=== PATIENT | male | born 1975 | race Caucasian/White ===

== ENCOUNTER 2017-03-25 18:41 | Emergency (ER) | payer OTHER ==
[~2017-03-25] VITALS: Ht 188 cm; Wt 123.4 kg
[~2017-03-25 18:41] MED LIST: AMOX500C2 PO; DICY20TA10 PO; HYDR-1231 PO; TRAM-42 PO
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
[2017-03-25] MEDS ORDERED: CYCL5TAB PO (20:59)
[2017-03-25 21:02] VITALS: BP 127/71
== END 2017-03-25 21:02 | disposition home or self-care (01) ==
LOC: EDUNIT# 18:41 → ER 18:42
DX: S19.9XXA Unspecified injury of neck, initial encounter (principal); V43.52XA Car driver injured in collision with other type car in traffic accident, initial encounter; Y92.414 Local residential or business street as the place of occurrence of the external cause; Y99.8 Other external cause status
CPT/HCPCS: 70450; 72125; 99282

== ENCOUNTER 2017-10-21 11:57 | Emergency (ER) | payer OTHER ==
[~2017-10-21] VITALS: Ht 188 cm; Wt 122.5 kg
[~2017-10-21 11:57] MED LIST changes: +CYCL5TAB PO
--- OUTSIDE RECORDS SUMMARY | 2017-10-21 12:03 | XMS REPORT ---
Author Author KEILA TENORIO Organization [facility] Address [address] [place] [address] Care Team Providers Care Extractor Filler Name Role Phone KEILA TENORIO Unavailable PROBLEMS Type Condition ICD9-CM Code [id number] Code Onset Dates Condition Status SNOMED Code Assessment Migraine without aura and without status migrainosus, not intractable G43.009 Apr, Active 618499231 Assessment Allergic rhinitis, unspecified allergic rhinitis trigger, unspecified rhinitis seasonality J30.9 Apr, Active 58418954 ALLERGIES Substance Reaction Event Type Date Status Ibuprofen Stomach cramps Drug Allergy Apr, Active SOCIAL HISTORY No smoking Hx information available PLAN OF CARE VITAL SIGNS Height 74 in 2016-04-08 Weight 266.8 lbs 2016-04-08 Heart Rate 92 bpm 2016-04-08 Respiratory Rate 20 2016-04-08 BMI 34.25 kg/m2 2016-04-08 Blood pressure systolic 128 mmHg 2016-04-08 Blood pressure diastolic 86 mmHg 2016-04-08 MEDICATIONS Medication Instructions Dosage Frequency Start Date End Date Duration Status Fioricet 50-325-40 MG Orally every 4 hrs 1 capsule as needed 4h Apr, Active Tylenol 8 Hour 650 MG Orally every 8 hrs 1 tablet as needed 8h Active Cetirizine HCl 10 mg Orally Once a day 1 tablet 24h Apr, Sep, 30 day(s) Active RESULTS No Results PROCEDURES Procedure Date Ordered Related Diagnosis Body Site Office Visit, Est Pt., Level 3 Apr 08, 2016 IMMUNIZATIONS No Known Immunizations
--- OUTSIDE RECORDS SUMMARY | 2017-10-21 12:03 | XMS REPORT ---
Author Author GRANT SIMON Organization [employer] Address Unknown Phone Unavailable Care Team Providers Care Web Production Designer Name Role Phone GRANT SIMON CP Unavailable Allergies, Adverse Reactions, Alerts Substance Reaction Event Type Ibuprofen Stomach cramps Drug Allergy Problems Problem Type Condition Code Onset Dates Condition Status Assessment Caries K02.9 Active Assessment Dental examination Z01.20 Active Medications No Known Medications Procedures Procedure Coding System Code Date INTRAORL-PERIAPICAL 1 FILM 32157 CPT-4 D0220 Aug 14, 2015 BITEWING - SINGLE FILM CPT-4 D0270 Aug 14, 2015 LTD ORAL EVALUATION - PROBLEM FOCUS CPT-4 D0140 Aug 14, 2015 EXTRAC ERUPTED TOOTH/EXPOSED ROOT CPT-4 D7140 Aug 14, 2015 Vital Signs Date/Time: Aug 14, 2015 Blood Pressure Diastolic 88 mmHg Blood Pressure Systolic 135 mmHg Height 74 in Results No Known Results Summary Purpose [employer] Submission
--- OUTSIDE RECORDS SUMMARY | 2017-10-21 12:03 | XMS REPORT ---
Author Author ALVINO RANGEL Organization [facility] Address [address] [place] [address] Care Team Providers Care Pbx Manager Name Role Phone ALVINO RANGEL Unavailable PROBLEMS Type Condition ICD9-CM Code QBL04-HZ Code Onset Dates Condition Status SNOMED Code Problem Irritable bowel syndrome with diarrhea K58.0 Active 242884923 ALLERGIES Substance Reaction Event Type Date Status Ibuprofen Stomach cramps Drug Allergy Sep, Active SOCIAL HISTORY No smoking Hx information available PLAN OF CARE Activity Details Follow Up prn Reason: VITAL SIGNS Height 74 in 2016-09-06 Weight 268.0 lbs 2016-09-06 Temperature 97.9 degrees Fahrenheit 2016-09-06 Heart Rate 76 bpm 2016-09-06 Respiratory Rate 20 2016-09-06 BMI 34.41 kg/m2 2016-09-06 Blood pressure systolic 118 mmHg 2016-09-06 Blood pressure diastolic 72 mmHg 2016-09-06 MEDICATIONS Medication Instructions Dosage Frequency Start Date End Date Duration Status Tylenol 8 Hour 650 MG Orally every 8 hrs 1 tablet as needed 8h Active Dicyclomine HCl 20 mg Orally 4 times a day 1 tablet 6h 12 May, 2016 Active Fioricet 50-325-40 MG Orally every 4 hrs 1 capsule as needed 4h 07 Apr, 2016 Active Fluticasone Propionate 50 MCG/ACT Nasally Once a day 1 spray in each nostril 24h 25 Sep, 2015 10 days Active Flonase Allergy Relief 50 MCG/ACT Nasally twice a day 1 spray in each nostril 12h Aug, 30 day(s) Active RESULTS Name Result Date Reference Range INFLUENZA A & B (IN HOUSE) 2016-09-06 INFLUENZA A negative INFLUENZA B negative Control + Lot # [id number] Exp date 01 29 18 PROCEDURES Procedure Date Ordered Related Diagnosis Body Site INFLUENZA ASSAY W/OPTIC Sep 06, 2016 Office Visit, Est Pt., Level 3 Sep 06, 2016 IMMUNIZATIONS No Known Immunizations
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
--- OUTSIDE RECORDS SUMMARY | 2017-10-21 12:04 | XMS REPORT ---
Author KEILA Velasco Organization [employer] Address Unknown Phone Unavailable Care Team Providers Care Pipe Fitter Helper Name Role Phone KEILA TENORIO CP Unavailable Allergies, Adverse Reactions, Alerts Substance Reaction Event Type Ibuprofen Stomach cramps Drug Allergy Problems Problem Type Condition Code Onset Dates Condition Status Assessment Irritable bowel syndrome with diarrhea K58.0 Active Problem Irritable bowel syndrome with diarrhea K58.0 Active Medications Medication Code System Code Instructions Start Date End Date Status Dosage Fioricet [facility] [address]-11 50-325-40 MG Orally every 4 hrs Apr 08, 2016 1 capsule as needed Dicyclomine HCl [facility] [address]-01 20 mg Orally 4 times a day May 13, 2016 1 tablet Tylenol 8 Hour [facility] [address]-31 650 MG Orally every 8 hrs 1 tablet as needed Cetirizine HCl [facility] [address]-73 10 mg Orally Once a day Apr 08, 2016 Sep 05, 2016 1 tablet Procedures Procedure Coding System Code Date Office Visit, Est Pt., Level 3 CPT-4 00083 May 13, 2016 Vital Signs Date/Time: May 13, 2016 Cardiac Monitoring Heart Rate 88 bpm Weight 269.4 lbs Height 74 in BMI 34.59 Index Blood Pressure Diastolic 76 mmHg Blood Pressure Systolic 110 mmHg Results No Known Results Summary Purpose [employer] Submission
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
--- OUTSIDE RECORDS SUMMARY | 2017-10-21 12:04 | XMS REPORT ---
Author Author VEDA LOMBARDO Organization [employer] Address Unknown Phone Unavailable Care Team Providers Care Planning Manager Name Role Phone VEDA LOMBARDO CP Unavailable Allergies, Adverse Reactions, Alerts Substance Reaction Event Type Ibuprofen Stomach cramps Drug Allergy Problems Problem Type Condition ICD-9 Code Onset Dates Condition Status Assessment Allergic rhinitis 477.9 Active Medications Medication Code System Code Instructions Start Date End Date Status Dosage Singulair [facility] [address]-38 10 MG Orally Once a day Mar 30, 2015 1 tablet in the evening Diclofenac Sodium [facility] [address]-49 50 MG Orally Twice a day Mar 07, 2015 May 06, 2015 1 tablet Zyrtec Allergy [facility] [address]-54 10 MG Orally Once a day in the AM Mar 30, 2015 Jul 28, 2015 1 tablet as needed Procedures Procedure Coding System Code Date Office Visit, Est Pt., Level 3 CPT-4 85256 Mar 30, 2015 Vital Signs Date/Time: Mar 30, 2015 Temperature 98.7 F Weight 248.7 lbs Height 74 in BMI 31.93 Index Blood Pressure Diastolic 74 mmHg Blood Pressure Systolic 132 mmHg Cardiac Monitoring Heart Rate 76 bpm Results No Known Results Summary Purpose [employer] Submission
--- NOTE | 2017-10-21 12:19 | ED EENT ---
History of Present Illness General Chief Complaint: Dental Problems/Pain Stated Complaint: DENTAL ISSUES History of Present Illness Date Seen by Provider: Oct 21, 2017 Time Seen by Provider: 12:13 Initial Comments Patient is a 41-year-old male who presents to the emergency room with left upper dental pain, dental caries, and a broken tooth. Patient reports taking his prescription hydrocodone for pain relief and states that he's tried to get into a dentist but they are all a month out. Location: dental (vital recently he just got dental pain left upper dental pain broken teeth) Allergies and Home Medications Allergies Coded Allergies: ibuprofen (Verified Adverse Reaction, Mild, 01/22/16) Home Medications Amoxicillin 500 Mg Capsule, 2 EACH PO TID Prescribed by: BRINA TORREZ on 03/24/142113 Cyclobenzaprine HCl 5 Mg Tablet, 5 MG PO TID PRN for MUSCLE SPASMS Prescribed by: VALENTINE JULIAN on 03/25/172058 Dicyclomine Hcl 20 Mg Tablet, 20 MG PO PRN, (Reported) Hydrocodone Bit/Acetaminophen 1 Tab Tablet, 1-2 TAB PO Q6H PRN for PAIN Prescribed by: BRINA TORREZ on 03/24/142113 Penicillin V Potassium 500 Mg Tablet, 500 MG PO QID Prescribed by: VALENTINE JULIAN on 10/21/17 1223 Tramadol HCl 50 Mg Tablet, 50 MG PO Q6H PRN for PAIN Prescribed by: MAE BOURGEOIS on 01/22/162040 Patient Home Medication List Home Medication List Reviewed: Yes Review of Systems Constitutional: see HPI, No chills Eyes: No Symptoms Reported Ears: No Symptoms Reported Nose: no symptoms reported Mouth: see HPI Throat: no symptoms reported Respiratory: no symptoms reported Cardiovascular: no symptoms reported Musculoskeletal: no symptoms reported Past Dqbyxni-Iuxfew-Aywutc Hx Patient Social History Type Used: Cigarettes 2nd Hand Smoke Exposure: No Recent Foreign Travel: No Contact w/Someone Who Travel: No Recent Hopitalizations: No Seasonal Allergies Seasonal Allergies: Yes Surgeries History of Surgeries: No Respiratory History of Respiratory Disorde: No Cardiovascular History of Cardiac Disorders: No Neurological History of Neurological Disord: No Reproductive System Hx Reproductive Disorders: No Sexually Transmitted Disease: No HIV/AIDS: No Genitourinary History of Genitourinary Disor: No Gastrointestinal History of Gastrointestinal Di: Yes Gastrointestinal Disorders: Irritable Bowel Musculoskeletal History of Musculoskeletal Dis: No Endocrine History of Endocrine Disorders: No HEENT History of HEENT Disorders: No Cancer History of Cancer: No Psychosocial History of Psychiatric Problem: No Integumentary History of Skin or Integumenta: Yes Skin/Integumentary Disorders: Eczema Blood Transfusions History of Blood Disorders: No Physical Exam Vital Signs Vital Signs - First Documented 10/21/17 10/21/17 12:20 12:50 Temp 98.4 Pulse 78 Resp 18 B/P (MAP) 149/89 (109) Pulse Ox 99 O2 Delivery Room Air General Appearance: WD/WN, no apparent distress Eyes: bilateral eye normal inspection, bilateral eye PERRL, bilateral eye EOMI Ears: bilateral ear auricle normal, bilateral ear canal normal, bilateral ear TM normal Nose: normal inspection Mouth/Throat: pharynx normal, other (carious and fractured teeth) Neck: non-tender Cardiovascular: regular rate, rhythm, no murmur Respiratory: normal breath sounds, no respiratory distress, no accessory muscle use Gastrointestinal: normal bowel sounds, non tender Neurologic/Psychiatric: alert, normal mood/affect, oriented x 3 Skin: normal color, warm/dry Progress/Results/Core Measures Results/Orders My Orders Orders - VALENTINE JULIAN APRN Lidocaine 2% Viscous 15 Ml (Xylocaine Vi (10/21/17 12:30) Medications Given in ED Current Medications Medications Dose Ordered Sig/Mark Route Start Time Stop Time Status Last Admin Dose Admin Lidocaine HCl 5 ml ONCE ONCE PO 10/21/17 12:30 10/21/17 12:31 DC 10/21/17 12:50 5 ML Vital Signs/I&O Vital Sign - Last 12Hours 10/21/17 10/21/17 12:20 12:50 Temp 98.4 98.4 Pulse 78 78 Resp 18 18 B/P (MAP) 149/89 (109) 149/89 (109) Pulse Ox 99 O2 Delivery Room Air Departure Impression Impression: Primary Impression: Dental caries Additional Impression: Broken teeth Disposition: 01 HOME, SELF-CARE Condition: Stable/Unchanged Departure-Patient Inst. Decision time for Depature: 12:18 Referrals: [facility] [place]VALENT[place]N (PCP) Primary Care Physician VEDA LOMBARDO (Family) Primary Care Physician Patient Instructions: Fractured Tooth (DC), Dental Pain (DC), Tooth Decay, Adult (DC) Add. Discharge Instructions: Follow-up with [facility] on [address] here in [place]. Take medication as directed, you may use the gauze pad and your prescription for hydrocodone for pain, and return back to emergency room for any concerns as needed. All discharge instructions reviewed with patient and/or family. Voiced understanding. Scripts Penicillin V Potassium (Penicillin V Potassium) 500 Mg Tablet 500 MG PO QID for 7 Days, #28 TAB Prov: VALENTINE JULIAN APRN 10/21/17 VALENTINE JULIAN APRN Oct 21, 2017 12:19
[2017-10-21] MEDS ORDERED: PENI500T PO (12:23)
[2017-10-21] MEDS ORDERED: LIDOCAINE 2% VISCOUS 15 ML UDC PO ONE (12:30)
[2017-10-21 12:50] VITALS: BP 149/89
== END 2017-10-21 12:51 | disposition home or self-care (01) ==
LOC: EDUNIT# 11:57 → ER 11:59
DX: S02.5XXA Fracture of tooth (traumatic), initial encounter for closed fracture (principal); K02.9 Dental caries, unspecified; Z88.6 Allergy status to analgesic agent; Z87.19 Personal history of other diseases of the digestive system; X58.XXXA Exposure to other specified factors, initial encounter
CPT/HCPCS: 99282

== ENCOUNTER 2022-04-22 04:57 | Emergency (ER) | payer SELFPAY ==
[~2022-04-22 04:57] MED LIST changes: +PENI500T PO
--- NOTE | 2022-04-22 05:08 | ED General ---
General Stated Complaint: RT SIDE FACE DROOPING Source of Information: Patient Exam Limitations: No Limitations History of Present Illness Date Seen by Provider: Apr 22, 2022 Time Seen by Provider: 05:00 Initial Comments 46-year-old male presents emerged from today for right facial droop. States went to bed about 930 last night and felt relatively normal though he does admit that his friends asked him yesterday at work if he was having a stroke due to some facial droop. He is unclear about what time this is exactly. He woke up this morning and his told him he needed to come to the emergency department for facial droop. No recent viral type illness. No tick bites. Never had similar symptoms in the past. No upper or lower extremity weakness numbness or tingling. Allergies and Home Medications Allergies Coded Allergies: ibuprofen (Verified Adverse Reaction, Mild, 01/22/16) Patient Home Medication List Home Medication List Reviewed: Yes Acyclovir (Acyclovir) 800 Mg Tablet, 800 MG PO 5XD Prescribed by: MARTHA OCHOA MD on 04/22/22520 Amoxicillin (Amoxicillin) 500 Mg Capsule, 2 EACH PO TID Prescribed by: BRINA TORREZ on 03/24/142113 Cyclobenzaprine HCl (Cyclobenzaprine HCl) 5 Mg Tablet, 5 MG PO TID PRN for MUSCLE SPASMS Prescribed by: VALENTINE JULIAN on 03/25/172058 Dicyclomine Hcl (Dicyclomine Hcl) 20 Mg Tablet, 20 MG PO PRN, (Reported) Entered as Reported by: IRINA HOPE on 03/24/142044 Hydrocodone Bit/Acetaminophen (Hydrocodone-Apap 5-325 Tablet) 1 Tab Tablet, 1-2 TAB PO Q6H PRN for PAIN Prescribed by: BRINA TORREZ on 03/24/142113 Penicillin V Potassium (Penicillin V Potassium) 500 Mg Tablet, 500 MG PO QID Prescribed by: VALENTINE JULIAN on 10/21/17 1223 Prednisone (Prednisone) 50 Mg Tab, 50 MG PO DAILY Prescribed by: MARTHA OCHOA MD on 04/22/22520 Tramadol HCl (Ultram) 50 Mg Tablet, 50 MG PO Q6H PRN for PAIN Prescribed by: MAE BOURGEOIS on 01/22/162040 Review of Systems Review of Systems Constitutional: no symptoms reported EENTM: no symptoms reported Respiratory: no symptoms reported Cardiovascular: no symptoms reported Gastrointestinal: no symptoms reported Genitourinary: no symptoms reported Musculoskeletal: no symptoms reported Skin: no symptoms reported Psychiatric/Neurological: Other (Right facial droop) Hematologic/Lymphatic: No Symptoms Reported Past Bbqtyyp-Hnyncn-Keslji Hx Patient Social History Tobacco Use?: No Use of E-Cig and/or Vaping dev: No Substance use?: No Alcohol Use?: No Seasonal Allergies Seasonal Allergies: Yes Past Medical History Surgeries: No Respiratory: No Cardiac: No Neurological: No Reproductive Disorders: No Sexually Transmitted Disease: No HIV/AIDS: No Genitourinary: No Gastrointestinal: Yes Irritable Bowel Musculoskeletal: No Endocrine: No HEENT: No Cancer: No Psychosocial: No Integumentary: Yes Eczema Blood Disorders: No Family Medical History Reviewed Nursing Family Hx No Pertinent Family Hx Physical Exam Vital Signs Vital Signs - First Documented 04/22/22 05:07 Temp 36.9 Pulse 86 Resp 16 B/P (MAP) 172/110 (130) Pulse Ox 97 O2 Delivery Room Air Capillary Refill : Height, Weight, BMI Height: 6'2.00" Weight: 270lbs. oz. 122.670724et; 29.53 BMI Method:Stated General Appearance: No Apparent Distress, WD/WN HEENT: PERRL/EOMI, TMs Normal, Normal ENT Inspection, Pharynx Normal Neck: Full Range of Motion, Normal Inspection, Non Tender, Supple Respiratory: Chest Non Tender, Lungs Clear, Normal Breath Sounds, No Accessory Muscle Use, No Respiratory Distress Cardiovascular: Regular Rate, Rhythm, No Edema, No Gallop, No JVD, No Murmur, Normal Peripheral Pulses Gastrointestinal: Normal Bowel Sounds, No Organomegaly, No Pulsatile Mass, Non Tender Neurologic/Psychiatric: Alert, Oriented x3, Normal Mood/Affect, Other (Right facial droop involving the right forehead as well. Normal strength sensation bilateral upper and lower extremities.) Skin: Normal Color, Warm/Dry Lymphatic: No Adenopathy Progress/Results/Core Measures Suspected Sepsis SIRS Temperature: Pulse: Respiratory Rate: Blood Pressure / Mean: Results/Orders Vital Signs/I&O 04/22/22 05:07 Temp 36.9 Pulse 86 Resp 16 B/P (MAP) 172/110 (130) Pulse Ox 97 O2 Delivery Room Air Capillary Refill : Departure Communication (Admissions) Patient is hemodynamically stable. Technically has an NIH of 2 due to facial droop and some dysarthria associated with this but this is clearly Hendrix's palsy. Clear Maricel-Sabina on exam. Discharged in stable condition with antivirals, steroids and recommendation for artificial tears. Impression Primary Impression: Hendrix's palsy Disposition: 01 HOME, SELF-CARE Condition: Stable Departure-Patient Inst. Referrals: [facility]/VALENT[facility]N (PCP) Primary Care Physician VEDA LOMBARDO (Family) Primary Care Physician Patient Instructions: Hendrix's Palsy Add. Discharge Instructions: Take the medications as prescribed until they are gone. Get some artificial tears and using her right arm to help with dryness. You may want to get a patch to protect this eye. Your symptoms will likely improve over the course of the next month but as discussed could become permanent. I recommend you follow-up with your primary doctor should your symptoms persist for further evaluation and treatment recommendations. Return to the emergency department for any severe concerns, specifically if you develop any weakness in arms, legs or your symptoms change in any way concerning to you. Scripts Prednisone (Prednisone) 50 Mg Tab 50 MG PO DAILY for 5 Days, #5 TAB Prov: MARTHA OCHOA DO 04/22/22 Acyclovir (Acyclovir) 800 Mg Tablet 800 MG PO 5XD for 7 Days, #35 TAB Prov: MARTHA OCHOA DO 04/22/22 MARTHA OCHOA DO Apr 22, 2022 05:08
[2022-04-22] MEDS ORDERED: ACYC-112 PO (05:21)
[2022-04-22] MEDS ORDERED: PRD50T PO (05:21)
[2022-04-22 05:30] VITALS: BP 151/100
== END 2022-04-22 05:32 | disposition home or self-care (01) ==
LOC: EDUNIT# 04:57 → ER 05:03
DX: G51.0 Bell's palsy (principal); Z28.310 Unvaccinated for COVID-19
CPT/HCPCS: 99281

== ENCOUNTER 2022-05-25 01:52 | Emergency (ER) | payer SELFPAY ==
[~2022-05-25] VITALS: Ht 182 cm; Wt 125.0 kg
[~2022-05-25 01:52] MED LIST changes: +ACYC-112 PO; +PRD50T PO
[2022-05-25 02:13] LABS: BASOPHILS % (AUTO) 0 % (0-10); EOSINOPHILS # (AUTO) 0.1 10^3/uL (0.0-0.3); EOSINOPHILS % (AUTO) 2 % (0-10); HEMATOCRIT 49 % (40-54); HEMOGLOBIN 17.2 g/dL (13.3-17.7); LYMPHOCYTES # (AUTO) 2.2 10^3/uL (1.0-4.0); LYMPHOCYTES % (AUTO) 29 % (12-44); MEAN CORPUSCULAR HEMOGLOBIN 33 pg (25-34); MEAN CORPUSCULAR HGB CONC 35 g/dL (32-36); MEAN CORPUSCULAR VOLUME 95 fL (80-99); MEAN PLATELET VOLUME 10.5 fL (9.0-12.2); MONOCYTES # (AUTO) 0.4 10^3/uL (0.0-1.0); MONOCYTES % (AUTO) 5 % (0-12); NEUTROPHILS # (AUTO) 4.9 10^3/uL (1.8-7.8); NEUTROPHILS % (AUTO) 64 % (42-75); PLATELET COUNT 162 10^3/uL (130-400); WHITE BLOOD COUNT 7.7 10^3/uL (4.3-11.0)
[2022-05-25] MEDS ORDERED: ASPIRIN 81 MG CHEW (CHILDREN'S ASA) PO ONE (02:15)
--- NOTE | 2022-05-25 02:23 | ED Cardiac General ---
History of Present Illness General Chief Complaint: Chest Pain Stated Complaint: PALPITATIONS,LIGHT HEADED,COLD SWEATS Source: patient History of Present Illness Date Seen by Provider: May 25, 2022 Time Seen by Provider: 02:01 Initial Comments PT ARRIVES VIA POV FROM HOME PT STATES SINCE "3:10 ON WEDNESDAY" 05/23/22, HE HAS BEEN HAVING "HEART FLUTTERS", AND "COLD SWEATS" AND FEELING LIGHTHEADED. SYMPTOMS COME AND GO, NOTHING WORSENS OR IMPROVES THEM C/O SLIGHT PAIN TO LEFT CHEST--"HEART BURN" --COMES AND GOES, NOT PRESENT NOW. NO SHORTNESS OF BREATH NO SWELLING IN LEGS/ FEET OR PAIN IN CALVES NO NAUSEA/VOMITING/DIARRHEA OR ABDOMINAL PAIN NO COUGH OR URI SYMPTOMS NO FEVER OR RECENT ILLNESS SYMPTOMS NO DIFFERENT HEATHER HAS NOT SOUGHT CARE UNTIL TONIGHT STATES HIS MADE HIM COME HERE TONIGHT STATES TONIGHT JUST PRIOR TO ARRIVAL, HE "CHECKED HIS PULSE" FOR THE FIRST TIME TONIGHT--STATES "IT WOULD BEAT 4 TIMES AND THEN PAUSE" DID NOT CHECK WHAT HIS PULSE RATE WAS. HAD THE SAME SYMPTOMS A COUPLE OF YEARS AGO, BUT DID NOT SEEK CARE. PT DENIES ANY MEDICAL PROBLEMS AND DOES NOT TAKE ANY MEDICATIONS PT SMOKES 3/4 PPD,DENIES ETOH OR DRUG USE PT IS NOT COVID VACCINATED. ASA po HOME CONNECT LPN: Yes PCP: CAMILA. SEEN 6 WEEKS AGO FOR HEADACHE Allergies and Home Medications Allergies Coded Allergies: ibuprofen (Verified Adverse Reaction, Mild, 01/22/16) Patient Home Medication List Home Medication List Reviewed: Yes Acyclovir (Acyclovir) 800 Mg Tablet, 800 MG PO 5XD Prescribed by: MARTHA OCHOA MD on 04/22/22520 Amoxicillin (Amoxicillin) 500 Mg Capsule, 2 EACH PO TID Prescribed by: BRINA TORREZ on 03/24/142113 Cyclobenzaprine HCl (Cyclobenzaprine HCl) 5 Mg Tablet, 5 MG PO TID PRN for MUSCLE SPASMS Prescribed by: VALENTINE JULIAN on 03/25/172058 Dicyclomine Hcl (Dicyclomine Hcl) 20 Mg Tablet, 20 MG PO PRN, (Reported) Entered as Reported by: IRINA HOPE on 03/24/142044 Hydrocodone Bit/Acetaminophen (Hydrocodone-Apap 5-325 Tablet) 1 Tab Tablet, 1-2 TAB PO Q6H PRN for PAIN Prescribed by: BRINA TORREZ on 03/24/142113 Penicillin V Potassium (Penicillin V Potassium) 500 Mg Tablet, 500 MG PO QID Prescribed by: VALENTINE JULIAN on 10/21/17 1223 Prednisone (Prednisone) 50 Mg Tab, 50 MG PO DAILY Prescribed by: MARTHA OCHOA MD on 04/22/22 0521 Tramadol HCl (Ultram) 50 Mg Tablet, 50 MG PO Q6H PRN for PAIN Prescribed by: MAE BOURGEOIS on 01/22/162040 Review of Systems Review of Systems Constitutional: see HPI, diaphoresis, dizziness; No fever, No malaise, No weakness EENTM: No Symptoms Reported Respiratory: No Symptoms Reported; Denies Cough, Denies Orthopnea, Denies Shortness of Air Cardiovascular: See HPI, Chest Pain; Denies Edema; Irregular Heart Rate, Lightheadedness, Palpitations; Denies Syncope Gastrointestinal: No Symptoms Reported; Denies Abdominal Pain, Denies Nausea, Denies Vomiting Genitourinary: No Symptoms Reported Musculoskeletal: no symptoms reported Skin: no symptoms reported Psychiatric/Neurological: No Symptoms Reported Endocrine: No Symptoms Reported Hematologic/Lymphatic: No Symptoms Reported Past Sufqcsx-Wwcsph-Chrvoh Hx Patient Social History Tobacco Use?: Yes (10/03 PPD) Tobacco type used: Cigarettes Smoking Status: Current Everyday Smoker Substance use?: No Alcohol Use?: No Seasonal Allergies Seasonal Allergies: Yes Past Medical History Surgery/Hospitalization HX: Hendrix's Palsy Surgeries: No Respiratory: No Cardiac: No Neurological: Yes (HENDRIX'S PALSY) Reproductive Disorders: No Sexually Transmitted Disease: No HIV/AIDS: No Genitourinary: No Gastrointestinal: Yes Irritable Bowel Musculoskeletal: No Endocrine: No HEENT: No Cancer: No Psychosocial: No Integumentary: Yes Eczema Blood Disorders: No Family Medical History No Pertinent Family Hx Physical Exam Vital Signs Capillary Refill : Less Than 3 Seconds Height, Weight, BMI Height: 6'2.00" Weight: 270lbs. oz. 122.339641fy; 29.53 BMI Method:Stated General Appearance: No Apparent Distress, WD/WN, Obese Neck: Full Range of Motion, Normal Inspection, Non Tender, Supple; No Carotid Bruit, No JVD Respiratory: Chest Non Tender, Normal Breath Sounds, No Accessory Muscle Use, No Respiratory Distress Cardiovascular: Regular Rate, Rhythm, No Edema, No JVD, No Murmur, Normal Peripheral Pulses Gastrointestinal: Non Tender, Soft Extremity: Normal Capillary Refill, Normal Inspection, Normal Range of Motion, Non Tender, No Calf Tenderness, No Pedal Edema Neurologic/Psychiatric: Alert, Oriented x3, No Motor/Sensory Deficits, concrete floater II- XII Norm as Tested Skin: Normal Color, Warm/Dry Progress/Results/Core Measures Results/Orders Lab Results Laboratory Tests Test 05/25/22 02:03 05/25/22 02:13 Range/Units White Blood Count 7.7 4.3-11.0 10^3/uL Red Blood Count 5.17 4.30-5.52 10^6/uL Hemoglobin 17.2 13.3-17.7 g/dL Hematocrit 49 40-54 % Mean Corpuscular Volume 95 80-99 fL Mean Corpuscular Hemoglobin 33 25-34 pg Mean Corpuscular Hemoglobin Concent 35 32-36 g/dL Red Cell Distribution Width 12.6 10.0-14.5 % Platelet Count 162 130-400 10^3/uL Mean Platelet Volume 10.5 9.0-12.2 fL Immature Granulocyte % (Auto) 0 % Neutrophils (%) (Auto) 64 42-75 % Lymphocytes (%) (Auto) 29 12-44 % Monocytes (%) (Auto) 5 0-12 % Eosinophils (%) (Auto) 2 0-10 % Basophils (%) (Auto) 0 0-10 % Neutrophils # (Auto) 4.9 1.8-7.8 10^3/uL Lymphocytes # (Auto) 2.2 1.0-4.0 10^3/uL Monocytes # (Auto) 0.4 0.0-1.0 10^3/uL Eosinophils # (Auto) 0.1 0.0-0.3 10^3/uL Basophils # (Auto) 0.0 0.0-0.1 10^3/uL Immature Granulocyte # (Auto) 0.0 0.0-0.1 10^3/uL Prothrombin Time 13.2 12.2-14.7 SEC INR Comment 1.0 0.8-1.4 Activated Partial Thromboplast Time 32 24-35 SEC D-Dimer <= 0.27 0.00-0.49 UG/ML Sodium Level 144 135-145 MMOL/L Potassium Level 3.7 3.6-5.0 MMOL/L Chloride Level 108 H 98-107 MMOL/L Carbon Dioxide Level 25 21-32 MMOL/L Anion Gap 11 5-14 MMOL/L Blood Urea Nitrogen 14 7-18 MG/DL Creatinine 1.13 0.60-1.30 MG/DL Estimat Glomerular Filtration Rate 81 BUN/Creatinine Ratio 12 Glucose Level 105 70-105 MG/DL Calcium Level 8.7 8.5-10.1 MG/DL Corrected Calcium 8.5 8.5-10.1 MG/DL Magnesium Level 2.1 1.6-2.4 MG/DL Total Bilirubin 0.5 0.1-1.0 MG/DL Aspartate Amino Transf (AST/SGOT) 18 5-34 U/L Alanine Aminotransferase (ALT/SGPT) 21 0-55 U/L Alkaline Phosphatase 63 40-136 U/L Total Creatine Kinase 115 30-200 U/L Creatine Kinase MB 2.9 <6.6 NG/ML Myoglobin 57.1 10.0-92.0 NG/ML Troponin I < 0.028 <0.028 NG/ML B-Type Natriuretic Peptide < 10.0 <100.0 PG/ML Total Protein 6.8 6.4-8.2 GM/DL Albumin 4.2 3.2-4.5 GM/DL TSH Lindsay Testing 3.66 0.35-4.94 UIU/ML Influenza Type A (RT-PCR) Not Detected Not Detecte Influenza Type B (RT-PCR) Not Detected Not Detecte SARS-CoV-2 RNA (RT-PCR) Not Detected Not Detecte My Orders Orders - ROBERTA HARRISON DO Ed Iv/Invasive Line Start (05/25/22 02:00) Ekg Tracing (05/25/22 02:00) Monitor-Rhythm Ecg Trace Only (05/25/22 02:00) Bnp Jason (05/25/22 02:00) Cbc With Automated Diff (05/25/22 02:00) Comprehensive Metabolic Panel (05/25/22 02:00) Creatine Kinase (05/25/22 02:00) Creatine Kinase Mb (05/25/22 02:00) Fibrin Degradation Products (05/25/22 02:00) Magnesium (05/25/22 02:00) Protime With Inr (05/25/22 02:00) Partial Thromboplastin Time (05/25/22 02:00) Thyroid Analyzer (05/25/22 02:00) Myoglobin Serum (05/25/22 02:00) Troponin I Jason (05/25/22 02:00) Chest 1 View, Ap/Pa Only (05/25/22 02:00) Aspirin Chewable Tablet (Baby Aspirin Ch (05/25/22 02:15) Covid 19 Inhouse Test (05/25/22 02:16) Influenza A And B By Pcr (05/25/22 02:16) Isolation Central Supply Req (05/25/22 02:16) Medications Given in ED Current Medications Medications Dose Ordered Sig/Mark Route Start Time Stop Time Status Last Admin Dose Admin Aspirin 324 mg ONCE ONCE PO 05/25/22 02:15 05/25/22 02:16 DC 05/25/22 02:19 324 MG Progress Progress Note : Progress Note GIVEN ASPIRIN PT HAD NO CHEST PAIN OF ANY KIND DURING ER STAY NO ARRHYTHMIAS AT ANY TIME NO OTHER SYMPTOMS OF ANY KIND DURING ER STAY BP DOWN TO 130'S/90'S WITHOUT TREATMENT. Initial ECG Impression Date: May 25, 2022 Initial ECG Impression Time: 02:07 Initial ECG Rate: 87 Initial ECG Rhythm: Normal Sinus Diagnostic Imaging Comments CXR--NO ACUTE PROCESS, PENDING RADIOLOGIST REVIEW Reviewed: Reviewed by Me Departure Impression Primary Impression: REPORTED PALPITATIONS Additional Impressions: Chest pain Labile hypertension Disposition: 01 HOME, SELF-CARE Condition: Stable Departure-Patient Inst. Decision time for Depature: 02:56 Referrals: [facility] (PCP/Family) Primary Care Physician Patient Instructions: Chest Pain (DC), Palpitations (DC), High Blood Pressure (DC), DASH Diet Add. Discharge Instructions: HOME, REST NO CAFFEINE NO ENERGY DRINKS NO OVER THE COUNTER DECONGESTANTS OR STIMULANTS TAKE 81 MG ASPIRIN DAILY FOLLOW UP WITH [facility] THIS WEEK FOR FURTHER CARE--CALL IN THE MORNING TO [facility] APPOINTMENT All discharge instructions reviewed with patient and/or family. Voiced understanding. ROBERTA HARRISON DO May 25, 2022 02:23
[2022-05-25 02:24] LABS: ALBUMIN 4.2 GM/DL (3.2-4.5)
[2022-05-25 02:25] LABS: CHLORIDE 108 MMOL/L (98-107); POTASSIUM 3.7 MMOL/L (3.6-5.0); SODIUM 144 MMOL/L (135-145)
[2022-05-25 02:26] LABS: CALCIUM 8.7 MG/DL (8.5-10.1)
[2022-05-25 02:27] LABS: GLUCOSE 105 MG/DL (70-105); TOTAL PROTEIN 6.8 GM/DL (6.4-8.2)
[2022-05-25 02:28] LABS: CARBON DIOXIDE 25 MMOL/L (21-32)
[2022-05-25 02:29] LABS: BILIRUBIN,TOTAL 0.5 MG/DL (0.1-1.0)
[2022-05-25 02:30] LABS: ALKALINE PHOSPHATASE 63 U/L (40-136)
[2022-05-25 02:31] LABS: CREATININE SERUM 1.13 MG/DL (0.60-1.30); GFR ESTIMATED 81
[2022-05-25 02:32] LABS: BUN/CREATININE RATIO 12
[2022-05-25 02:33] LABS: MAGNESIUM 2.1 MG/DL (1.6-2.4)
[2022-05-25 02:34] LABS: ALANINE AMINOTRANSFERASE 21 U/L (0-55); CREATINE KINASE 115 U/L (30-200)
[2022-05-25 02:41] LABS: CREATINE KINASE MB 2.9 NG/ML (<6.6)
[2022-05-25 02:43] LABS: FIBRIN DEGRADATION PRODUCTS <= 0.27 UG/ML (0.00-0.49); PARTIAL THROMBOPLASTIN TIME 32 SEC (24-35); PROTHROMBIN TIME PATIENT 13.2 SEC (12.2-14.7)
[2022-05-25 02:54] LABS: TSH (THYROID ANALYZER) 3.66 UIU/ML (0.35-4.94)
[2022-05-25 03:05] VITALS: BP 137/69
--- NOTE | 2022-05-25 07:15 | Diagnostic Imaging Report ---
EXAM: CHEST 1 VIEW, AP/PA ONLY INDICATION: Palpitations. COMPARISON: None. FINDINGS: Normal heart size and pulmonary vascularity. No dense consolidation, pleural effusion or pneumothorax. No acute osseous findings. IMPRESSION: Negative chest. Dictated by: Dictated on workstation # [id number]
== END 2022-05-25 03:15 | disposition home or self-care (01) ==
LOC: EDUNIT# 01:52 → ER 01:54
DX: R07.89 Other chest pain (principal); R00.2 Palpitations; R09.89 Other specified symptoms and signs involving the circulatory and respiratory systems; E66.9 Obesity, unspecified; F17.210 Nicotine dependence, cigarettes, uncomplicated; Z68.29 Body mass index [BMI] 29.0-29.9, adult; Z20.822 Contact with and (suspected) exposure to COVID-19
CPT/HCPCS: 36415; 71045; 80053; 82550; 82553; 83735; 83874; 83880; 84443; 84484; 85025; 85379; 85610; 85730; 87636; 93005; 93041